=== PATIENT | female | born 1995 | race Caucasian/White ===

== ENCOUNTER 2018-08-27 18:28 | Emergency (ER) | payer BC ==
--- NOTE | 2018-08-27 19:24 | EDPHY ---
H & P Time Seen by Provider: 08/27/18 19:07 HPI/ROS: CHIEF COMPLAINT: Sore throat HISTORY OF PRESENT ILLNESS: The patient is a 23-year-old female presents emergency department with sore throat and fever starting on Wednesday. Patient states that her fever has defervesced on . She continues have a sore throat. Her sore throat is bilateral and worse with swallowing. She describes the pain is moderate. She has had no vomiting. No neck stiffness. Patient has had no difficulty breathing. The patient went to urgent care earlier this evening at around 2:00 p.m.. She was treated with Rocephin and steroid. The provider told her that she was concerned that she could have epiglottitis but she had no ability to perform an x-ray. She subsequently treated the patient as above and discharged her home. The patient developed mild nausea and was concern with her ongoing pain so she came the emergency department for evaluation. Strep screen was negative. REVIEW OF SYSTEMS: 10 systems were reveiwed and are negative with the exception of the elements mentioned in the history of present illness. Past Medical/Surgical History: Includes hyperkalemia, migraine, kidney stone Smoking Status: Never smoked Physical Exam: Vitals noted GENERAL: Well-appearing, in no acute distress, alert. HEENT: Eyes normal to inspection. Pharynx has diffuse erythema. No lesions or discharge. Uvula is midline. No asymmetry or signs of abscess. Her airway is open with no signs of impingement. NECK: Normal, supple. No stridor. No neck tenderness palpation. Bilateral anterior lymphadenopathy. RESPIRATORY: Clear to auscultation bilaterally, no rales, rhonchi or wheezing. CVS: Regular rate and rhythm, no rubs, murmurs, or gallops. ABDOMEN: Soft, nontender, nondistended, no organomegaly. SKIN: Normal color, no rash, warm, dry. No pallor. EXTREMITIES: Normal. No swelling. NEURO/PSYCH: Alert and oriented, normal mood and affect, normal motor sensory exam. Constitutional: Initial Vital Signs Temperature (C) 36 C 08/27/18 18:37 Heart Rate 78 08/27/18 18:37 Respiratory Rate 18 08/27/18 18:37 Blood Pressure 121/86 H 08/27/18 18:37 O2 Sat (%) 97 08/27/18 18:37 O2 Delivery Mode Room Air Allergies/Adverse Reactions: No Known Allergies Allergy (Unverified 08/27/18 18:36) Home Medications: Medication Instructions Recorded Hydrocodone/Acetaminophen [Lortab 15 ml PO Q4 #90 ml 08/27/18 10 mg-300 mg/15 ml Elxr] Medical Decision Making ED Course/Re-evaluation: In the emergency department I discussed possible etiologies with the patient. I do not feel she patient does not feel septic or toxic. She is not febrile at this time. I think epiglottitis is less likely. I discussed the patient's medications given at urgent care. She will start her antibiotic and steroid tomorrow. The she was given liquid pain medication. Patient was given warnings prior to leaving. She will return worsening symptoms. Differential Diagnosis: Differential includes but is not limited to pharyngitis, retropharyngeal abscess , peritonsillar abscess, epiglottitis, tracheitis Departure - Departure Disposition: Home, Routine, Self-Care Clinical Impression: Acute pharyngitis Qualifiers: Pharyngitis/tonsillitis etiology: unspecified etiology Qualified Code(s): J02.9 - Acute pharyngitis, unspecified Condition: Good Instructions: Pharyngitis (ED) Additional Instructions: Return with increasing pain, persistent fever, difficulty swallowing or any other concerns. Referrals: [facility] [Other] - 2-3 days, if not improved Prescriptions: Hydrocodone/Acetaminophen [Lortab 10 mg-300 mg/15 ml Elxr] 15 ml PO Q4 #90 ml
[2018-08-27 19:55] VITALS: BP 104/82
== END 2018-08-27 19:54 | disposition home or self-care (01) ==
DX: J02.9 Acute pharyngitis, unspecified (principal)